=== PATIENT | female | born 1945 | race Caucasian/White ===

== ENCOUNTER 2017-07-31 18:03 | Emergency (ER) | payer SELFPAY ==
[2017-07-31 18:09] VITALS: BMI 25.7
[2017-07-31] MEDS ORDERED: SODIUM CHLORIDE 1,000 ML IV STA (19:16)
[2017-07-31 19:37] LABS: URINE APPEARANCE SLCLOUDY; URINE BILIRUBIN NEGATIVE (NEGATIVE); URINE BLOOD 2+ (NEGATIVE); URINE COLOR STRAW; URINE GLUCOSE (UA) NEGATIVE (NEGATIVE); URINE KETONE NEGATIVE (NEGATIVE); URINE NITRITE NEGATIVE (NEGATIVE); URINE PROTEIN NEGATIVE (NEGATIVE); URINE UROBILINOGEN NEGATIVE mg/dL (0.2-1.0)
[2017-07-31 19:39] LABS: URINE LEUK ESTERASE 2+ (NEGATIVE)
--- NOTE | 2017-07-31 19:51 | PDOC ---
History of Present Illness - General Chief Complaint: Pain Stated Complaint: ABD PAIN Time Seen by Provider: 07/31/17 19:02 - History of Present Illness Initial Comments: 07/31/17 19:44 71 yo Kiswahili speaking F who presents with dysuria. Pt. endorses worsening dysuria of 72 hours duration (07/29) with normal urinary frequency and urgency. Denies fevers/chills, N/V, hematuria. Endorses unremitting BL flank pain beginning (07/29). Pain is non positional. Denies chest pain, SOB, diarrhea/ constipation, loss of appetite. lightheadedness, weakness. Denies OTC analgesia. [place] ( [place] Pt told to come to ED by PCP because of RLQ tenderness. Past History - Past Medical History Allergies/Adverse Reactions: Allergies Allergy/AdvReac Type Severity Reaction Status Date / Time No Known Allergies Allergy Verified 07/31/17 18:10 Home Medications: Ambulatory Orders Ciprofloxacin [Cipro -] 500 mg PO Q12H #19 tablet MDD 1000 mg 07/31/17 - Psycho/Social/Smoking Cessation Hx Suicidal Ideation: No Smoking History: Never smoked Information on smoking cessation initiated: No Review of Systems - Review of Systems Comments:: 07/31/17 19:53 GENERAL/CONSTITUTIONAL: No fever or chills. No weakness. HEAD, EYES, EARS, NOSE AND THROAT: No change in vision. No ear pain or discharge. No sore throat.- CARDIOVASCULAR: No chest pain or shortness of breath RESPIRATORY: No cough, wheezing, or hemoptysis. GASTROINTESTINAL: No nausea, vomiting, diarrhea or constipation. GENITOURINARY: + dysuria. No frequency, or change in urination. MUSCULOSKELETAL: No joint or muscle swelling or pain. No neck or back pain. SKIN: No rash NEUROLOGIC: No headache, vertigo, loss of consciousness, or change in strength/ sensation. ENDOCRINE: No increased thirst. No abnormal weight change HEMATOLOGIC/LYMPHATIC: No anemia, easy bleeding, or history of blood clots. ALLERGIC/IMMUNOLOGIC: No hives or skin allergy. *Physical Exam - Vital Signs Last Vital Signs Temp Pulse Resp BP Pulse Ox 98.2 F 83 18 150/77 98 07/31/17 18:06 07/31/17 18:06 07/31/17 18:06 07/31/17 18:06 07/31/17 18:06 - Physical Exam Comments: 07/31/17 19:54 GENERAL: Awake, alert, and fully oriented, in no acute distress HEAD: No signs of trauma, normocephalic, atraumatic EYES: PERRLA, EOMI, sclera anicteric, conjunctiva clear ENT: Auricles normal inspection, hearing grossly normal, nares patent, oropharynx clear without exudates. Moist mucosa NECK: Normal ROM, supple, no lymphadenopathy, JVD, or masses LUNGS: No distress, speaks full sentences, clear to auscultation bilaterally HEART: Regular rate and rhythm, normal S1 and S2, no murmurs, rubs or gallops, peripheral pulses normal and equal bilaterally. ABDOMEN: + BL CVA ttp and + RLQ/RUQ abdominal pain. Soft, normoactive bowel sounds. No guarding, no rebound. Absent rigidity. No masses EXTREMITIES: Normal inspection, Normal range of motion, no edema. No clubbing or cyanosis. SKIN: Warm, Dry, normal turgor, no rashes or lesions noted. ED Treatment Course - LABORATORY CBC & Chemistry Diagram: 07/31/17 19:30 07/31/17 19:30 - ADDITIONAL ORDERS Additional order review: Laboratory Results 07/31/17 19:20 Urine Color Straw Urine Appearance Slcloudy Urine pH 6.0 Urine Protein Negative Urine Glucose (UA) Negative Urine Ketones Negative Urine Blood 2+ H Urine Nitrite Negative Urine Bilirubin Negative Urine Urobilinogen Negative Ur Leukocyte Esterase 2+ H - RADIOLOGY Radiology Studies Ordered: Category Date Time Status ABDOMEN & PELVIS CT W/O CONTR [CT] Stat CT Scan 07/31/17 19:26 Ordered Medical Decision Making - Medical Decision Making 07/31/17 20:11 71 yo Kiswahili speaking F who presents with dysuria. Pt. endorses worsening dysuria and bilateral flank pain of 72 hours duration (07/29). Physical exam reveals RUQ/RLQ and suprapubic ttp. Hemodynamically stable. No associated symptoms. DDx: Cystitis, Nephrolithiasis, Colitis, Pyelonephritis ED Course: 1 L NS 07/31/17 20:25 UA: 2+Leuk Esterase, 2+ Blood, Cloudy 500 mg Levofloxacin 07/31/17 20:28 WBC: 8.3 07/31/17 21:01 CT Abdomen/Pelvis: Right hepatic lobe hypodense foci most likely cyst. Correlate with f/u CT or MRI in 3 months Stable D/C. *DC/Admit/Observation/Transfer Diagnosis at time of Disposition: Cystitis - Discharge Dispostion Disposition: HOME Condition at time of disposition: Stable Admit: No - Prescriptions Prescriptions: Ciprofloxacin [Cipro -] 500 mg PO Q12H #19 tablet MDD 1000 mg - Patient Instructions Printed Discharge Instructions: DI for Urinary Tract Infection (UTI) Additional Instructions: Please return to ED if you experience any fevers/chills, nausea/vomiting, worsening pain with urination, blood in urine, or worsening symptoms. Follow up with PCP to correlate CT findings of possible cyst on liver. Recommend CT or MRI in 3 months.
[2017-07-31 20:02] LABS: BASOPHIL 0.7 % (0-2.0); EOSINOPHIL 1.6 % (0-4.5); MCH 24.3 pg (25.7-33.7); MCHC 32.2 g/dl (32.0-36.0); MEAN CELL VOLUME 75.4 fl (80-96); MEAN PLT VOLUME 9.1 fl (7.5-11.1); NEUTROPHILS 69.9 % (42.8-82.8); PLATELET COUNT 182 K/MM3 (134-434); RDW 17.6 % (11.6-15.6); WHITE BLOOD COUNT 8.3 K/mm3 (4.0-10.0)
--- NOTE | 2017-07-31 20:22 | PDOC ---
Attending Attestation - HPI HPI: 07/31/17 20:34 Patient is a 71 year old female with no significant past medical history who presents to the ED with complaints of bilateral flank pain since saturday. Patient reports that the flank pain began saturday evening but has begun to intensify with each day. Patient states cases of dysuria beginning saturday as well secondary to the bilateral flank pain. Denies fevers, chill. Denies nausea, vomiting. Denies Chest pain, SOB. Denies any other symptoms. Allergies: N/A PMD: Dr. Rashard Evans - Medical Decision Making 07/31/17 20:34 Documentation prepared by Tejas Gallo, acting as medical anthropology director for Juventino Hall MD. <Tejas Gallo - Last Filed: 07/31/17 20:34> - Resident Resident Name: VelNicholas - ED Attending Attestation I have performed the following: I have examined & evaluated the patient, The case was reviewed & discussed with the resident, I agree w/resident's findings & plan, Exceptions are as noted - HPI HPI: 07/31/17 20:21 - Physicial Exam PE: 07/31/17 21:03 Physical Exam General Appearance: Yes: Appropriately Dressed. No: Apparent Distress, Intoxicated HEENT: positive: EOMI, ISHA, Normal ENT Inspection, Normal Voice, TMs Normal, Pharynx Normal. negative: Pale Conjunctivae, Photophobia, Scleral Icterus (R), Scleral Icterus (L) Neck: positive: Trachea midline, Normal Thyroid, Supple. negative: Tender, Rigid, Carotid bruit, Stridor, Lymphadenopathy (R), Lymphadenopathy (L), Thyromegaly Respiratory/Chest: positive: Lungs Clear, Normal Breath Sounds. negative: Chest Tender, Respiratory Distress, Accessory Muscle Use, Labored Respiration, RES, Crackles, Rales, Rhonchi, Stridor, Wheezing, Dullness Cardiovascular: positive: Regular Rhythm, Regular Rate, S1, S2. negative: Edema , JVD, Murmur, Bradycardia, Tachycardia Vascular Pulses: Dorsalis-Pedis (R): 2+, Doralis-Pedis (L): 2+ Gastrointestinal/Abdominal: positive: Normal Bowel Sounds, Flat, Soft. negative : Tender, Organomegaly, Pulsatile Mass, Increased Bowel Sounds, Decreased BS, Distended, Guarding, Rebound, Hernia, Hepatomegaly, Spleenomegaly Lymphatic: negative: Adenopathy, Tenderness Musculoskeletal: positive: Normal Inspection. negative: CVA Tenderness, Decreased Range of Motion Extremity: positive: Normal Capillary Refill, Normal Inspection, Normal Range of Motion, Pelvis Stable. negative: Tender, Pedal Edema, Swelling, Erythema Integumentary: positive: Normal Color, Dry, Warm. negative: Cyanotic, Erythema , Jaundice, Rash Neurologic: positive: collection supervisor II-XII NML intact, Fully Oriented, Alert, Normal Mood/ Affect, Motor Strength 5/5. negative: EOM Palsy, Facial Droop, Sensory Deficit - Medical Decision Making 07/31/17 21:03 given IV Abx for UTI and discharged. Ct scan negative for any renal/ urinary pathology <Juventino Hall - Last Filed: 07/31/17 21:04>
[2017-07-31 20:24] LABS: URINE BACTERIA FEW /hpf (NONE SEEN); URINE RBC 1 /hpf (0-3); URINE WBC 37 /hpf (3-5)
[2017-07-31] MEDS ORDERED: CIPROFLOXACIN 500 MG TABLET (RESTRICTED TO ID) PO ONE (20:25)
[2017-07-31 20:31] LABS: ALBUMIN 3.6 g/dl (3.4-5.0); ALK PHOS 138 U/L (45-117); ANION GAP 9 (8-16); BILIRUBIN,TOTAL 0.4 mg/dL (0.2-1.0); CO2 26 mmol/L (21-32); CREATININE 0.8 mg/dL (0.55-1.02); GLUCOSE,RANDOM 94 mg/dL (74-106); SGOT/AST 21 U/L (15-37); SGPT/ALT 18 U/L (12-78); TOT PROT 7.4 g/dl (6.4-8.2)
[2017-07-31] MEDS ORDERED: LEVOFLOXACIN 500 MG TABLET (FP) PO ONE (20:33)
[2017-07-31] MEDS ORDERED: LEVOFLOXACIN 250 MG TABLET (FP) ONE (20:46)
[2017-07-31 21:11] VITALS: BP 141/72; PULSE 81; TEMP 97.9
[2017-07-31 23:20] LABS: CALCIUM 9.5 mg/dL (8.5-10.1)
== END 2017-07-31 21:24 | disposition home or self-care (01) ==
LOC: JER 18:03
PROC: 3E0337Z Introduction of Electrolytic and Water Balance Substance into Peripheral Vein, Percutaneous Approach (ICD-10-PCS; principal; 2017-07-31)
DX: N30.01 Acute cystitis with hematuria (principal); B96.89 Other specified bacterial agents as the cause of diseases classified elsewhere
CPT/HCPCS: 36415; 74176-TC; 80053; 81003; 81015; 83690; 85025; 87086; 87186; 99284-25